=== PATIENT | female | born 2005 | race Caucasian/White ===

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

== ENCOUNTER 2024-01-25 10:32 | Outpatient (REF) | payer MEDICAID, SELFPAY ==
--- NOTE | ~2024-01-25 | US_ITS ---
EXAMINATION: US RETROPERITONEAL LIMITED (RENAL ONLY) CLINICAL INFORMATION: Unspecified hydronephrosis. COMPARISON: CT abdomen and pelvis 10/06/2023. TECHNIQUE: Real-time imaging of the kidneys. FINDINGS: RIGHT KIDNEY: 10.8 x 4.1 x 5.3 cm (SAG x AP x TRV). The kidney is normal in size, contour, and echogenicity. Renal cortical thickness is normal. No focal parenchymal lesions or hydronephrosis. At the interpolar aspect, a 4 mm nonobstructing calculus is seen. At the lower pole, 2 mm and 3 mm nonobstructing calculi are seen. LEFT KIDNEY: 10.3 x 5.7 x 4.7 cm (SAG x AP x TRV). The kidney is normal in size, contour, and echogenicity. Renal cortical thickness is normal. No calculi or focal parenchymal lesions. No hydronephrosis. US/US renal BI IMPRESSION: There are nonobstructing right renal calculi. No left renal calculus is seen. No hydronephrosis is seen bilaterally.
== END 2024-01-25 10:33 | disposition home or self-care (01) ==
LOC: HO.US 10:32
PROVIDERS: PCP Student in an Organized Health Care Education/Training Program; Visit Provider Urology
DX: N20.1 Calculus of ureter (principal); N13.30 Unspecified hydronephrosis
CPT/HCPCS: 76775

== ENCOUNTER 2024-02-01 11:34 | Outpatient (AMB) | payer MEDICAID, SELFPAY ==
--- NOTE | 2024-02-01 11:36 | A.OFFVIS_ITS ---
Intake Visit Reasons: 10w/US/[employer] Intake Note: Patient is present for 10W F/U US Urology Medication:Tamsulosin Antibiotic Allergy:none Blood Thinner:none Executive Assistant Required: No Accompanied by: Self / Same As Patient Allergies No Known Allergies Allergy (Verified 02/01/24 11:38) HPI Comments Details: 02/01/24--Here for FU, had 24 hr urine: Discussed 24 hour urine results: Total volume 890 mL, Calcium 221 mg; Oxalate 32 mg, Sodium 24, Citrate 800 mg. Alison states that that day she was outdoors a lot. Instructed on importance of increasing fluid intake especially when she is outside on a hot or stenuous exercise when she may be sweating, decrease animal protein, and continue Low oxalate diet, low sodium diet. Reviewed follow-up renal ultrasound. Hydronephrosis resolved no renal calculi noted. Plan to repeat 24 hour urine in 9 months. Review of chart: 11/27/23--Alison is here in follow-up, she was treated at [facility] for pyelonephritis and CT imaging at that time noted a 2 mm right ureteral stone with mild hydronephrosis. Patient states she has been doing well since being seen in the hospital. She denies gross hematuria. I have discussed at length diet modification to decrease risk of forming more kidney stones. I have discussed low oxalate diet and specific foods to avoid including certain green leafy vegetables, chocalate, nuts, tea, beets, rubarb; low sodium, decreased use of animal protein and the importance of hydration drinking up to 2-2.5 liters of fluids and use of adding lemon to water to increase citrate in the diet. A pamphlet is also provided today. The patient states that she knows that she does not drink enough water. She drinks a lot of tea and will have spinach smoothies. Plan discussed 24 hour urine collection. Follow-up renal ultrasound. Review of chart: 10/06/23--Consult HPI--Alison is 18-year-old female with no significant PMH who presents to the ED with?right-sided flank pain x1 day. She stated pain started this morning also had 3-4 episodes of nausea and vomiting, Denies dysuria, but noted brown - red color to urine. Denies chest pain/pressure, palpitations. Shortness of breath. The patient was examined in the emergency room, she would received some IV fluid hydration stated she felt a lot better. Abdomen soft no CVA tenderness. No right lower quadrant tenderness to palpation. 10/06/23--CTAP: Minimal right-sided hydronephrosis secondary to a 2 mm calculus within the distal right ureter. [facility] Social History Household Members: Family Housing: House Do you presently have visiting nurse or other home services: No Patient Tobacco Use Status: Never used Tobacco service: No Review of Systems Const All systems reviewed & are unremarkable except as noted in HPI and below Reports no additional complaints Eyes Reports no additional complaints ENT Reports no additional complaints Card Reports no additional complaints Resp Reports no additional complaints GI Reports no additional complaints Reports as per HPI Musc Reports no additional complaints Skin/Breast Reports system reviewed and no additional complaints, except as documented Neuro Reports no additional complaints Psych Reports no additional complaints Endo Reports no additional complaints Jan/Lymph Reports no additional complaints Aller/Immun Reports no additional complaints Results AMB Urinalysis, Automated UA Leukoctes 70 Narinder/uL Last Edit by JERSEY Posadas on 02/01/24 11:52 UA Nitrite Negative Last Edit by JERSEY Posadas on 02/01/24 11:52 UA Urobilinogen 0.2 mg/dL Last Edit by JERSEY Posadas on 02/01/24 11:5 2 UA Protein 15 mg/dL Last Edit by JERSEY Posadas on 02/01/24 11:52 UA pH 7.0 Last Edit by JERSEY Posadas on 02/01/24 11:52 UA Blood 0 Moreno/uL Last Edit by JERSEY Posadas on 02/01/24 11:52 UA Specific [place] 1.010 Last Edit by JERSEY Posadas on 02/01/24 11: 52 UA Ketone Negative Last Edit by JERSEY Posadas on 02/01/24 11:52 UA Bilirubin 0 mg/dL Last Edit by JERSEY Posadas on 02/01/24 11:52 UA Glucose 0 mg/dL Last Edit by JERSEY Posadas on 02/01/24 11:52 Results Reviewed Results Reviewed: Date of Service: 01/25/24 US RETROPERITONEAL LIMITED (RENAL ONLY) CLINICAL INFORMATION: Unspecified hydronephrosis. COMPARISON: CT abdomen and pelvis 10/06/2023. TECHNIQUE: Real-time imaging of the kidneys. FINDINGS: RIGHT KIDNEY: 10.8 x 4.1 x 5.3 cm (SAG x AP x TRV). The kidney is normal in size, contour, and echogenicity. Renal cortical thickness is normal. No focal parenchymal lesions or hydronephrosis. At the interpolar aspect, a 4 mm nonobstructing calculus is seen. At the lower pole, 2 mm and 3 mm nonobstructing calculi are seen. LEFT KIDNEY: 10.3 x 5.7 x 4.7 cm (SAG x AP x TRV). The kidney is normal in size, contour, and echogenicity. Renal cortical thickness is normal. No calculi or focal parenchymal lesions. No hydronephrosis. IMPRESSION: There are nonobstructing right renal calculi. No left renal calculus is seen. No hydronephrosis is seen bilaterally. 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 Renal ultrasound 01/25/2024 Code(s): N13.30 - Unspecified hydronephrosis Category: Medical (3) Ureterolithiasis: Code(s): N20.1 - Calculus of ureter Category: Medical (4) History of pyelonephritis: Code(s): Z87.448 - Personal history of other diseases of urinary system Category: Medical Plan 24 hour urine. Low urine volume. Elevated urine calcium. Instructed on importance of increasing fluid intake, decrease animal protein, and continue Low oxalate diet, low sodium diet. Reviewed follow-up renal ultrasound. Hydronephrosis resolved no renal calculi noted. Plan to repeat 24 hour urine in 9 months. Orders: Orders AMB Urinalysis Automated Today Z13.9 - Encounter for screening, unspecified Patient Instructions: The patient had an opportunity to ask questions regarding treatment plan. The patient expressed understanding and agreement with the above treatment plan. The patient is aware they should contact our office by phone for worsening of their current condition or the appearance of new symptoms. Compliance is encouraged with any medications and followup testing that is ordered. It is a privilege to be allowed the opportunity to participate in the urologic care of your patient. If you have any questions or concerns regarding treatment for the above conditions please do not hesitate to contact me. The office telephone contact is [phone]. This note is constructed in part using voice recognition software. While every effort has been made to ensure accuracy clinical documentation specialist errors may have been included. Yours sincerely, Angelito Fry MD Coding Level of Care Code Est Pt Level 4 (85374) Diagnoses Hypercalciuria R82.994 Hydronephrosis N13.30 Ureterolithiasis N20.1 History of pyelonephritis Z87.448
== END 2024-02-01 12:04 | disposition home or self-care (01) ==
PROVIDERS: PCP Student in an Organized Health Care Education/Training Program; Visit Provider Urology
DX: R82.994 Hypercalciuria (principal); N13.30 Unspecified hydronephrosis; N20.1 Calculus of ureter; Z87.448 Personal history of other diseases of urinary system; Z13.9 Encounter for screening, unspecified
CPT/HCPCS: 99214

== ENCOUNTER → 2024-02-01 11:34 | Outpatient (BNVA) | payer MEDICAID, SELFPAY | PROVIDERS: PCP Student in an Organized Health Care Education/Training Program; Visit Provider Urology | DX: N20.1 Calculus of ureter (principal); N13.30 Unspecified hydronephrosis; R82.994 Hypercalciuria; Z87.448 Personal history of other diseases of urinary system | CPT/HCPCS: 81003; 99212 ==

== ENCOUNTER 2024-12-19 11:30 | Outpatient (AMB) | payer OTHER, SELFPAY ==
--- NOTE | 2024-12-19 11:38 | A.OFFVIS_ITS ---
Intake Visit Reasons: 9m/24hr Urine Intake Note: Patient is present for 9 month follow up/24hr urine * 11/29 [facility] comp. Urology Medication:none Antibiotic Allergy:none Blood Thinner:none Stove Polisher Required: No Accompanied by: Self / Same As Patient Allergies No Known Allergies Allergy (Verified 12/19/24 11:39) Medication List - Last Reconciled 12/19/24 by Angelito Fry MD ibuprofen 200 mg PO Q6H PRN HPI Comments Details: 12/19/24--Cliff is here in follow-up for nephrolithiasis. Discussed 24 hour urine results collected:11/29/24-- Total volume 580mL, Calcium 125 mg; Oxalate 27 mg, Citrate 426 mg, Sodium 90. History of Present Illness The patient is a 19-year-old female presenting with a follow-up for nephrolithiasis. She was previously diagnosed with nephrolithiasis, specifically in the right kidney, with stone sizes of 4 mm, 2 mm, and 3 mm noted in a past ultrasound from January 2024. Recently submitted a 24-hour urine collection noted low urine volume (580 mL), though calcium and oxalate levels have normalized. Citrate levels, having previously been elevated, are now lower, which may necessitate dietary modifications to maintain adequate levels for stone inhibition. She mentions episodic right flank pain, possibly indicative of stone movement, with no accompanying hematuria, or may be musculuskelal. Plan renal US. Increase fluid intake. Urinary Symptoms Review - Decreased fluid intake leading to reduced urine volume (580 mL in 24 hours) - Episodic right flank pain, intermittent, resolves quickly - No visible hematuria noted Results - Past ultrasound (January): Right nephrolithiasis with stones measuring 4 mm, 2 mm, and 3 mm; left kidney clear. - 24-hour urine collection (November 29, 2024): Urine volume 580 mL, normal calcium and oxalate levels. 02/01/24--Here for FU, had 24 hr urine: Discussed 24 hour urine results: Total volume 890 mL, Calcium 221 mg; Oxalate 32 mg, Sodium 24, Citrate 800 mg. Alison states that that day she was outdoors a lot. Instructed on importance of increasing fluid intake especially when she is outside on a hot or stenuous exercise when she may be sweating, decrease animal protein, and continue Low oxalate diet, low sodium diet. Reviewed follow-up renal ultrasound. Hydronephrosis resolved no renal calculi noted. Plan to repeat 24 hour urine in 9 months. 11/27/23--Alison is here in follow-up, she was treated at [facility] for pyelonephritis and CT imaging at that time noted a 2 mm right ureteral stone with mild hydronephrosis. Patient states she has been doing well since being seen in the hospital. She denies gross hematuria. I have discussed at length diet modification to decrease risk of forming more kidney stones. I have discussed low oxalate diet and specific foods to avoid including certain green leafy vegetables, chocalate, nuts, tea, beets, rubarb; low sodium, decreased use of animal protein and the importance of hydration drinking up to 2-2.5 liters of fluids and use of adding lemon to water to increase citrate in the diet. A pamphlet is also provided today. The patient states that she knows that she does not drink enough water. She drinks a lot of tea and will have spinach smoothies. Plan discussed 24 hour urine collection. Follow-up renal ultrasound. 10/06/23--Consult HPI--Alison is 18-year-old female with no significant PMH who presents to the ED with?right-sided flank pain x1 day. She stated pain started this morning also had 3-4 episodes of nausea and vomiting, Denies dysuria, but noted brown - red color to urine. Denies chest pain/pressure, palpitations. Shortness of breath. The patient was examined in the emergency room, she would received some IV fluid hydration stated she felt a lot better. Abdomen soft no CVA tenderness. No right lower quadrant tenderness to palpation. 10/06/23--CTAP: Minimal right-sided hydronephrosis secondary to a 2 mm calculus within the distal right ureter. [facility] Social History Household Members: Family Housing: House Do you presently have visiting nurse or other home services: No Patient Tobacco Use Status: Never used Tobacco service: No Review of Systems Const All systems reviewed & are unremarkable except as noted in HPI and below Reports no additional complaints Eyes Reports no additional complaints ENT Reports no additional complaints Card Reports no additional complaints Resp Reports no additional complaints GI Reports no additional complaints Reports as per HPI Musc Reports no additional complaints Skin/Breast Reports system reviewed and no additional complaints, except as documented Neuro Reports no additional complaints Psych Reports no additional complaints Endo Reports no additional complaints Jan/Lymph Reports no additional complaints Aller/Immun Reports no additional complaints Results Reviewed Results Reviewed: Date of Service: 01/25/24 US RETROPERITONEAL LIMITED (RENAL ONLY) CLINICAL INFORMATION: Unspecified hydronephrosis. COMPARISON: CT abdomen and pelvis 10/06/2023. TECHNIQUE: Real-time imaging of the kidneys. FINDINGS: RIGHT KIDNEY: 10.8 x 4.1 x 5.3 cm (SAG x AP x TRV). The kidney is normal in size, contour, and echogenicity. Renal cortical thickness is normal. No focal parenchymal lesions or hydronephrosis. At the interpolar aspect, a 4 mm nonobstructing calculus is seen. At the lower pole, 2 mm and 3 mm nonobstructing calculi are seen. LEFT KIDNEY: 10.3 x 5.7 x 4.7 cm (SAG x AP x TRV). The kidney is normal in size, contour, and echogenicity. Renal cortical thickness is normal. No calculi or focal parenchymal lesions. No hydronephrosis. IMPRESSION: There are nonobstructing right renal calculi. No left renal calculus is seen. No hydronephrosis is seen bilaterally. 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 - Add lemon or lemon concentrate to your diet to increase citrate levels. - renal US Orders: Orders US renal BI Today M54.9 - Dorsalgia, unspecified, N20.0 - Calculus of kidney Medications: Discontinued oxycodone Partial Fill upon patient request. Discontinued Reason: Patient Completed Course 5 mg PO Q6H PRN 7 caps 0RF moderate pain (scale score 5-6) Patient Instructions: The patient had an opportunity to ask questions regarding treatment plan. The patient expressed understanding and agreement with the above treatment plan. The patient is aware they should contact our office by phone for worsening of their current condition or the appearance of new symptoms. Compliance is encouraged with any medications and followup testing that is ordered. It is a privilege to be allowed the opportunity to participate in the urologic care of your patient. If you have any questions or concerns regarding treatment for the above conditions please do not hesitate to contact me. The office telephone contact is [phone]. This note is constructed in part using voice recognition software. While every effort has been made to ensure accuracy instructional technology coordinator errors may have been included. Yours sincerely, Angelito Fry MD Scribe Plan - Not visible on output: Patient was informed and verbally consented to the use of an ambient scribe for clinic note documentation during this visit. Coding Level of Care Code Est Pt Level 4 (96729) Diagnoses Hypercalciuria R82.994 History of pyelonephritis Z87.448 Right renal stone N20.0 Back pain M54.9
--- OUTSIDE RECORDS SUMMARY | 2024-12-19 12:48 | XMS_ITS | Clinical Summary ---
Author Organization [facility] Address [address] [place] [address] Care Team Providers Care Retail Visual Merchandiser Name Role Phone Laurent Correa MD Primary Care Provider [phone] Source Comments PLEASE NOTE, if this patient is a minor, it may be UNLAWFUL to discuss sensitive information that is contained in these records (such as FAMILY PLANNING, MENTAL HEALTH or SUBSTANCE ABUSE) with the minor patient's parent or other person without the patient's specific authorization.[facility] Allergies No known active allergies Medications tretinoin (RETIN-A) 0.01 % gelIndications:A cne comedone Apply topically nightly at bedtime 15 g 3 0 Active clindamycin phosphate (CLINDAGEL) 1 % gelIndications:A cne, unspecified acne type Apply topically 2 (two) times daily 60 g 3 4 Active ibuprofen 400 mg tabletIndication s:Routine general medical examination at a health care facility Take 1 Tablet by mouth 4 (four) times daily as needed for fever, moderate pain or mild pain 90 Tablet 1 4 Active Active Problems Problem Noted Date Diagnosed Date Hydronephrosis with urinary obstruction due to ureteral calculus 12/21/2023 Overview (02/15/2024): 01/2024: Urology low urine volume and elevated urine calcium in 24h urine. Advised increased fluids, decrease animal protein and low oxalate diet, low sodium diet Repeat in 9 months. Hydronephrosis resolved. 11/27/23: Urology - repeat renal US, F/u in [address] A/P: minimal RS hydronephrosis 2/2 2mm calculus within distal R ureter History of cold sores 02/20/2020 Immunity to varicella determined by serologic te st 09/12/2019 Acne vulgaris 09/12/2019 Lack of immunity to hepatiti s B virus demonstrated by serologic test 09/09/2019 Immunizations Immunization Administration Dates Next Due DTAP (DAPTACEL),5 PERTUSSIS ANTIGENS ,03/20/2005,02/12/2005,2004 HEP B, PED/ADOL 03/19/2021, 0,11/01/2019,2004,2004,2004 MENINGOCOCCAL MCV4P (MENACTRA) 03/19/2021,2019 MMR (MMR II/Priorix) 10/01/2010,10/14/2005 OPV, Trivalent 08/28/2011, 6,03/31/2005,2004,02/12/2005 TDAP 09/09/2019 Td (adult) unspecified 08/28/2011 Family History Medical History Relation Name Comments No Known Problems Brother No Known Problems Father Other (See Comments) Mother Polyoar thritis. No Known Problems Sister Relation Name Status Comments Brother Alive Father Alive Mother Alive Sister Alive Social History Tobacco Use Types Packs/Day Years Used Date Smoking Tobacco: Never Smokeless Tobacco: Never Tobacco Cessation:Counseling Given: Not Answered Alcohol Use Standard Drinks/Week Comments Never 0 (1 standard drink = 0.6 oz pur e alcohol) Social Connections Answer Date Recorded Connectedness 0 03/24/2024 Financial Resource Strain Answer Date R ecorded Financial Resource Strain 0 2019 Stress Answer Date Recorded Stress 0 09/09/2019 Physical Activity Answer Date Recorded Physical Activity 0 09/09/2019 Food Insecurity Answer Date Recorded Food 0 04/14/2024 Transportation Needs Answer Date Record ed Transportation 0 09/09/2019 Housing Stability Answer Date Recorded Housing 0 09/09/2019 Safety and Environment Answer Date Tobin rded Safety 1 12/28/2023 Utilities Answer Date Recorded Utilities 0 09/09/2019 Employment Answer Date Recorded Employment 0 09/09/2019 Comments No Sex and Gender Information Value Date Recorded Sex Assigned at Female 12/28/2023 6:30 AM PDT Legal Sex Female 1:13 PM PST Gender Identity Female 12/28/2023 6:30 AM PDT Sexual Orientation Straight 12/28/2023 6: 30 AM PDT Last Filed Vital Signs Vital Sign Reading Time Taken Comments Blood Pressure 110/82 12/28/2023 8:58 AM EDT Pulse 86 12/28/2023 8:58 AM EDT Temperature 36.7 ??C (98 ??F) 12/28/2023 8:58 AM EDT Respiratory Rate 16 12/28/2023 8:58 AM EDT Oxygen Saturation 98% 12/28/2023 8:58 AM EDT Inhaled Oxygen Concentration - - Weight 59.9 kg (132 lb) 12/28/2023 8:58 AM EDT Height 162.7 cm (5' 4.06 ) 12/28/2023 8:58 AM ED T Body Mass Index 22.62 12/28/2023 8:58 AM EDT Plan of Treatment Health Maintenance Due Date Last Done Comments Anxiety Screening 2004 Imm-HPV (1 - 3-dose series) 09/28/2019 Imm-Meningococcal B (1 of 2 - Standard) 2020 [id number] () 03/20/2024 Alcohol and Drug Screen 07/20/2024 12/28/19 24, 03/19/2021, 02/17/2020 Depression Annual Screen 07/20/2024 12/28/2023 Annual Wellness (Adult): Indicated (All Coverage) 12/27/2024 12/28/2023 Relationship Safety Screening/Counseling 12/27/2024 12/28/2023 Tobacco Screening 12/27/2024 12/28/2023 Chlamydia Screening 01/03/2025 01/04/2024, 05/22/2022, 03/19/2021, Additional history exists Gonorrhea Screening 01/03/2025 01/04/2024, 05/22/2022, 03/19/2021, Additional history exists Imm-Influenza (Season Ended) 2025 Hypertension Screening (#1) 12/27/2026 Imm-DTaP/Tdap/Td (6 - Td or Tdap) 09/09/2029 09/09/2019, 08/28/2011, 05/06/2006, Additional history exists Imm-MMR Completed 10/01/2010, 10/14/2005 Imm-Hepatitis B Completed 03/19/2021, 01/19, 11/01/2019, Additional history exists HIV Screening Completed 12/28/2023, 09/09/2019 Hepatitis C Screening Completed 12/28/2023 Imm-Hepatitis A Aged Out No longer el igible based on patient's age to complete this topic Procedures Procedure Name Priority Date/Time Associated Diagnosis Comments REFERRAL TO DERMATOLOGY Routine 11/21/2024 3:00 AM EDT Closed comedone C TRACHOMATIS/N GONORRHOEAE RNA,TMA Routine 01/04/2024 11:19 AM EDT Routine general medical examination at a health care facility HIV 1/2 AG & AB W/RFLX (4TH GEN) Routine 12/28/2023 9:44 AM EDT Routine general medical examination at a health care facility HEPATITIS C AB W/RFLX HCV RNA, QT, RT PCR Routine 12/28/2023 9:42 AM EDT Routine general medical examination at a health care facility from Last 3 Months or Most Recently Relevant to Health Maintenance Results * REFERRAL TO DERMATOLOGY (11/21/2024 3:00 AM EDT) 11/21/2024 3:00 AM EDT Laurent Correa MD REFERRAL Edited Result - Final * C TRACHOMATIS/N GONORRHOEAE RNA,TMA (01/04/2024 11:19 AM EDT) CHLAMYDIA TRACHOMATIS RNA, TMA NOT DETECTED NOT DETECTED [employer] [facility] NEISSERIA GONORRHOEAE RNA, TMA NOT DETECTED NOT DETECTED [employer] [facility] COMMENT [employer] [facility] Urine Urine specimen / Unknown 01/04/2024 11:19 AM EDT 01/04/2024 11:19 AM EDT Narrative [employer] [facility] - 01/05/2024 11:29 PM EDT The analytical performance characteristics of this assay, when used to test SurePath(TM) specimens have been determined by [employer]. The modifications have not been cleared or approved by the FDA. This assay has been validated pursuant to the CLIA regulations and is used for clinical purposes. For additional information, please refer to https://[employer].OrderAhead/faq/VWQ616 (This link is being provided for information/ educational purposes only.) us Laurent Correa MD LAB BODY FLUIDS AND STOOLS AMBUL ATORY Final Result Performing Organization Address [facility] Co de Phone Number [employer] [address] [address], [employer] [address] [address] * HIV 1/2 AG & AB W/RFLX (4TH GEN) (12/28/2023 9:44 AM EDT) [facility] HIV AG/AB, 4TH GEN NON-REAC TIVE NON-REAC TIVE [employer] [facility] Comment: HIV-1 antigen and HIV-1/HIV-2 antibodies were not detected. There is no laboratory evidence of HIV infection. PLEASE NOTE: This information has been disclosed to you from records whose confidentiality may be protected by state law. ??If your state requires such protection, then the state law prohibits you from making any further disclosure of the information without the specific written consent of the person to whom it pertains, or as otherwise permitted by law. A general authorization for the release of medical or other information is NOT sufficient for this purpose. ?? For additional information please refer to http://[employer].OrderAhead/faq/RAN414 (This link is being provided for informational/ educational purposes only.) The performance of this assay has not been clinically validated in patients less than 2 years old. Blood Blood / Unknown 12/28/2023 9 :44 AM EDT 12/28/2023 9:44 AM EDT us Laurent Correa MD LAB - BLOOD DRAW Final Result Performing Organization Address [facility]/ZIP Co de Phone Number [employer] [address] [address], [employer] [address] [address] * HEPATITIS C AB W/RFLX HCV RNA, QT, RT PCR (12/28/2023 9:42 AM EDT) HEPATITIS C ANTIBODY NON-REACT ARPAN NON-REACT ARPAN [employer] Comment: HCV antibody was non-reactive. There is no laboratory evidence of HCV infection. In most cases, no further action is required. However, if recent HCV exposure is suspected, a test for HCV RNA (test code 71306) is suggested. For additional information please refer to http://education.OrderAhead/faq/PGT88l3 (This link is being provided for informational/ educational purposes only.) Blood Blood / Unknown 12/28/2023 9 :42 AM EDT 12/28/2023 9:43 AM EDT us Laurent Correa MD LAB - BLOOD DRAW Final Result [employer] [address] [address], [employer] [address] [place] [address] from Last 3 Months or Most Recently Relevant to Health Maintenance Insurance [employer] Care Teams Retail Visual Merchandiser Relationship Specialty Start Date End Date Laurent Correa MD [address] [place] [address] PCP - General Family Medicine, Physician 12/09/23
== END 2024-12-19 12:04 | disposition home or self-care (01) ==
LOC: HO.HUSH 11:30
PROVIDERS: PCP Student in an Organized Health Care Education/Training Program; Visit Provider Urology
DX: R82.994 Hypercalciuria (principal); Z87.448 Personal history of other diseases of urinary system; N20.0 Calculus of kidney; M54.9 Dorsalgia, unspecified
CPT/HCPCS: 99214

== ENCOUNTER → 2024-12-19 11:30 | Outpatient (BNVA) | payer OTHER, SELFPAY | PROVIDERS: PCP Student in an Organized Health Care Education/Training Program; Visit Provider Urology | DX: R82.994 Hypercalciuria (principal); N20.0 Calculus of kidney; M54.9 Dorsalgia, unspecified; Z87.448 Personal history of other diseases of urinary system | CPT/HCPCS: 99212 ==

== ENCOUNTER 2025-03-08 07:51 | Outpatient (REF) | payer OTHER, SELFPAY ==
--- NOTE | ~2025-03-08 | US_ITS ---
CLINICAL HISTORY: M54.9 - Dorsalgia, unspecified, Back pain, calculus of kidney, rt US Renal Comparison: 01/25/2024 Findings: Right kidney normal size and echotexture, 10.2 cm length. Left kidney normal size and echotexture, 10.2 cm length. No collecting system dilatation of either kidney. Normal color Doppler. One to a few nonobstructive right renal stones measuring up to 4 mm, also seen on prior exam. IMPRESSION: Small nonobstructive right renal stone/s. This document has been electronically signed by: Jannie Correa MD on 03/09/2025 11:52:55
--- OUTSIDE RECORDS SUMMARY | 2025-03-08 07:53 | XMS_ITS | Clinical Summary ---
Author Organization [facility] Address [address] [place] [address] Care Team Providers Care Field Case Manager Name Role Phone Laurent Correa MD Primary Care Provider [phone] Source Comments PLEASE NOTE, if this patient [...] obstruction due to ureteral calculus 12/21/2023 Overview (12/20/2024): Following Urology, last seen 12/2024, adequate hydration, repeat renal US 01/2024: Urology low urine volume and elevated [...] Dates Next Due DTAP (DAPTACEL),5 PERTUSSIS ANTIGENS ,03/20/2005,02/12/2005,12/31 HEP B, PED/ADOL ([id number]/RECOMBIVAX-PEDS) 03/19/2021,02/17/2020,11/01/2019,04/22,2004,2004 MENINGOCOCCAL MCV4P (MENACTRA) 03/19/2021,2019 MMR (MMR II/Priorix) 10/01/2010,10/14/2005 OPV, Trivalent 08/28/2011, 6,03/31/2005,03/20,02/12/2005 TDAP 09/09/2019 Td (adult) unspecified 08/28/2011 Family [...] 86 12/28/2023 8:58 AM EDT Temperature 36.7 C (98 F) 12/28/2023 8:58 AM EDT Respiratory Rate 16 [...] Date Last Done Comments Anxiety Screening 2004 Tobacco Screening 2004 Imm-HPV (1 - 3-dose series) 09/28/2019 Imm-Meningococcal B (1 of 2 - Standard) 2020 [id number] ( season) 2024 Alcohol and Drug Screen 07/20/2024 12/28/19 24, 03/19/2021, 02/17/2020 Depression Annual Screen 07/20/2024 12/28/2023 Annual Wellness (Adult): Indicated (All Coverage) 12/27/2024 12/28/2023 Relationship Safety Screening/Counseling 12/27/2024 12/28/2023 Chlamydia Screening 01/03/2025 01/04/2024, 05/22/2022, 03/19/2021, Additional history exists Gonorrhea Screening 01/03/2025 01/04/2024, 05/22/2022, 03/19/2021, Additional history exists Imm-Influenza (#1) 2025 Hypertension Screening (#1) 12/27/2026 Imm-DTaP/Tdap/Td (6 - Td or Tdap) 09/09/2029 09/09/2019, 08/28/2011, 05/06/2006, Additional history exists Imm-MMR Completed 10/01/2010, 10/14/2005 Imm-Hepatitis B Completed 03/19/2021, 07/07/2019, 11/01/2019, Additional history exists HIV Screening Completed 12/28/2023, 09/09/2019 Hepatitis C Screening Completed 12/28/2023 Imm-Hepatitis A Aged Out No longer el igible based on patient's age to complete this topic Procedures Procedure Name Priority Date/Time Associated Diagnosis Comments REFERRAL SCANNED DOCUMENT 12/19/2024 3:00 AM EDT C TRACHOMATIS/N GONORRHOEAE RNA,TMA Routine 01/04/2024 11:19 [...] Relevant to Health Maintenance Results * REFERRAL SCANNED DOCUMENT (12/19/2024 3:00 AM EDT) 12/19/2024 3:00 AM EDT Laurent Correa MD SCAN REFERRAL Final Result * C TRACHOMATIS/N GONORRHOEAE RNA,TMA (01/04/2024 11:19 AM EDT) CHLAMYDIA TRACHOMATIS RNA, TMA NOT DETECTED NOT DETECTED [facility] NEISSERIA GONORRHOEAE RNA, TMA NOT DETECTED NOT DETECTED [facility] COMMENT [facility] Urine Urine specimen / Unknown 01/04/2024 11:19 AM EDT 01/04/2024 11:19 AM EDT Narrative [facility] - 01/05/2024 11:29 PM EDT The analytical performance characteristics of this assay, when used to test SurePath(TM) specimens have been determined by [employer]. The modifications have not been cleared or approved by the FDA. This assay has been validated pursuant to the CLIA regulations and is used for clinical purposes. For additional information, please refer to https://[employer]'s.Flit/faq/YZE850 (This link is being provided for information/ educational purposes only.) us Laurent Correa MD LAB BODY FLUIDS AND STOOLS AMBUL ATORY Final Result Performing Organization Address [facility]/ZIP Co de Phone Number [facility] [employer] [facility] [address] [address], [facility] [address] [address] * HIV 1/2 AG & AB W/RFLX (4TH GEN) (12/28/2023 9:44 AM EDT) [facility] HIV AG/AB, 4TH GEN NON-REAC TIVE NON-REAC TIVE [facility] Comment: HIV-1 antigen and HIV-1/HIV-2 antibodies were not detected. There is no laboratory evidence of HIV infection. PLEASE NOTE: This information has been disclosed to you from records whose confidentiality may be protected by state law. If your state requires such protection, then the state law prohibits you from making any further disclosure of the information without the specific written consent of the person to whom it pertains, or as otherwise permitted by law. A general authorization for the release of medical or other information is NOT sufficient for this purpose. For additional information please refer to http://[employer]with.[employer]/faq/ZQE172 (This link is being provided for informational/ educational purposes only.) The performance of this assay has not been clinically validated in patients less than 2 years old. Blood Blood / Unknown 12/28/2023 9 :44 AM EDT 12/28/2023 9:44 AM EDT us Laurent Correa MD LAB - BLOOD DRAW Final Result Performing Organization Address [facility]/ZIP Co de Phone Number [facility] [address] [address], [facility] [address] [address] * HEPATITIS C AB W/RFLX HCV RNA, QT, RT PCR (12/28/2023 9:42 AM EDT) HEPATITIS C ANTIBODY NON-REACT ARPAN NON-REACT ARPAN [employer] Comment: HCV antibody was non-reactive. There is no laboratory evidence of HCV infection. In most cases, no further action is required. However, if recent HCV exposure is suspected, a test for HCV RNA (test code 37571) is suggested. For additional information please refer to http://education.Flit/faq/TZV29z7 (This link is being provided for informational/ educational purposes only.) Blood Blood / Unknown 12/28/2023 9 :42 AM EDT 12/28/2023 9:43 AM EDT us Laurent Correa MD LAB - BLOOD DRAW Final Result [employer] [address] [address], [employer] [address] [address] from Last 3 Months or Most Recently Relevant to Health Maintenance Insurance [employer] Care Teams Field Case Manager Relationship Specialty Start Date End Date Laurent Correa MD [address] [place] [address] PCP - General Family Medicine, Physician 12/09/23
== END 2025-03-08 07:52 | disposition home or self-care (01) ==
LOC: HO.US 07:51
PROVIDERS: PCP Student in an Organized Health Care Education/Training Program; Visit Provider Urology
DX: M54.9 Dorsalgia, unspecified (principal); N20.0 Calculus of kidney
CPT/HCPCS: 76775

== ENCOUNTER → 2025-03-08 07:52 | Outpatient (BNV) | payer OTHER, SELFPAY | PROVIDERS: PCP Student in an Organized Health Care Education/Training Program; Visit Provider Radiology Diagnostic Radiology | DX: N20.0 Calculus of kidney (principal) | CPT/HCPCS: 76775 ==

== ENCOUNTER 2025-03-23 08:24 | Outpatient (AMB) | payer OTHER, SELFPAY ==
--- NOTE | 2025-03-23 08:24 | MHC.OFFVIS ---
Intake Visit Reasons: 3m/US Intake Note: Patient is present via telehealth for 3m/US follow up 03/09 Renal US Urology Medication:none Antibiotic Allergy:none Blood Thinner:none Photovoltaic Fabrication Technician Required: No Accompanied by: Self / Same As Patient Allergies No Known Allergies Allergy (Verified 03/23/25 08:27) Medication List - Last Reconciled 03/23/25 by Angelito Fry MD ibuprofen 200 mg PO Q6H PRN HPI Comments Details: 03/23/25--Alison is followed due to history of kidney stones. Telehealth today she states she has occasional discomfort in the kidney area. I reviewed renal ultrasound 03/08/25--which notes small stones in the right kidney. In discussion with the patient she recalls that on her CAT scan there was only 1 stone. In review of the initial CAT scan 10/06/2023 a 2 mm right ureteral stone was reported; that the patient has since passed. Due to the discrepancy between the ultrasound and prior CAT scan in a year we will re-evaluate kidneys with a CT stone protocol. The patient was encouraged to continue to increase her fluid intake. She states she has adding lemon to her fluids. 12/19/24--Cliff is here in follow-up for nephrolithiasis. Discussed 24 hour urine results collected:11/29/24-- Total volume 580mL, Calcium 125 mg; Oxalate 27 mg, Citrate 426 mg, Sodium 90. History of Present Illness The patient is a 19-year-old female presenting with a follow-up for nephrolithiasis. She was previously diagnosed with nephrolithiasis, specifically in the right kidney, with stone sizes of 4 mm, 2 mm, and 3 mm noted in a past ultrasound from January 2024. Recently submitted a 24-hour urine collection noted low urine volume (580 mL), though calcium and oxalate levels have normalized. Citrate levels, having previously been elevated, are now lower, which may necessitate dietary modifications to maintain adequate levels for stone inhibition. She mentions episodic right flank pain, possibly indicative of stone movement, with no accompanying hematuria, or may be musculuskelal. Plan renal US. Increase fluid intake. Urinary Symptoms Review - Decreased fluid intake leading to reduced urine volume (580 mL in 24 hours) - Episodic right flank pain, intermittent, resolves quickly - No visible hematuria noted Results - Past ultrasound (January): Right nephrolithiasis with stones measuring 4 mm, 2 mm, and 3 mm; left kidney clear. - 24-hour urine collection (November 29, 2024): Urine volume 580 mL, normal calcium and oxalate levels. 02/01/24--Here for FU, had 24 hr urine: Discussed 24 hour urine results: Total volume 890 mL, Calcium 221 mg; Oxalate 32 mg, Sodium 24, Citrate 800 mg. Alison states that that day she was outdoors a lot. Instructed on importance of increasing fluid intake especially when she is outside on a hot or stenuous exercise when she may be sweating, decrease animal protein, and continue Low oxalate diet, low sodium diet. Reviewed follow-up renal ultrasound. Hydronephrosis resolved no renal calculi noted. Plan to repeat 24 hour urine in 9 months. 11/27/23--Alison is here in follow-up, she was [place] [facility] [place] and CT imaging at that time noted a 2 mm right ureteral stone with mild hydronephrosis. Patient states she has been doing well since being seen in the hospital. She denies gross hematuria. I have discussed at length diet modification to decrease risk of forming more kidney stones. I have discussed low oxalate diet and specific foods to avoid including certain green leafy vegetables, chocalate, nuts, tea, beets, rubarb; low sodium, decreased use of animal protein and the importance of hydration drinking up to 2-2.5 liters of fluids and use of adding lemon to water to increase citrate in the diet. A pamphlet is also provided today. The patient states that she knows that she does not drink enough water. She drinks a lot of tea and will have spinach smoothies. Plan discussed 24 hour urine collection. Follow-up renal ultrasound. 10/06/23--Consult HPI--Alison is 18-year-old female with no significant PMH who presents to the ED with?right-sided flank pain x1 day. She stated pain started this morning also had 3-4 episodes of nausea and vomiting, Denies dysuria, but noted brown - red color to urine. Denies chest pain/pressure, palpitations. Shortness of breath. The patient was examined in the emergency room, she would received some IV fluid hydration stated she felt a lot better. Abdomen soft no CVA tenderness. No right lower quadrant tenderness to palpation. 3/19/24--CTAP: Minimal right-sided hydronephrosis secondary to a 2 mm calculus within the distal right ureter. [facility] Social History Household Members: Family Housing: House Do you presently have visiting nurse or other home services: No Patient Tobacco Use Status: Never used Tobacco service: No Review of Systems Const All systems reviewed & are unremarkable except as noted in HPI and below Reports no additional complaints Eyes Reports no additional complaints ENT Reports no additional complaints Card Reports no additional complaints Resp Reports no additional complaints GI Reports no additional complaints Reports as per HPI Musc Reports no additional complaints Skin/Breast Reports system reviewed and no additional complaints, except as documented Neuro Reports no additional complaints Psych Reports no additional complaints Endo Reports no additional complaints Jan/Lymph Reports no additional complaints Aller/Immun Reports no additional complaints Telehealth Telehealth Telehealth Platform: Telephone Location of provider rendering services: practice address Location of patient: address on file Patient Identification confirmed using: Name, : Yes Telehealth method: voice only Patient verbally consented to treatment: Yes Patient verbally consented to billing insurance company: Yes Patient informed of any privacy concerns related to visit: Yes Minutes spent on Phone/Video with Pt.: 14 Results Reviewed Results Reviewed: Date of Service: 03/08/25 US Renal Comparison: 01/25/2024 Findings: Right kidney normal size and echotexture, 10.2 cm length. Left kidney normal size and echotexture, 10.2 cm length. No collecting system dilatation of either kidney. Normal color Doppler. One to a few nonobstructive right renal stones measuring up to 4 mm, also seen on prior exam. IMPRESSION: Small nonobstructive right renal stone/s. Date of Service: 01/25/24 US RETROPERITONEAL LIMITED (RENAL ONLY) CLINICAL INFORMATION: Unspecified hydronephrosis. COMPARISON: CT abdomen and pelvis 10/06/2023. TECHNIQUE: Real-time imaging of the kidneys. FINDINGS: RIGHT KIDNEY: 10.8 x 4.1 x 5.3 cm (SAG x AP x TRV). The kidney is normal in size, contour, and echogenicity. Renal cortical thickness is normal. No focal parenchymal lesions or hydronephrosis. At the interpolar aspect, a 4 mm nonobstructing calculus is seen. At the lower pole, 2 mm and 3 mm nonobstructing calculi are seen. LEFT KIDNEY: 10.3 x 5.7 x 4.7 cm (SAG x AP x TRV). The kidney is normal in size, contour, and echogenicity. Renal cortical thickness is normal. No calculi or focal parenchymal lesions. No hydronephrosis. IMPRESSION: There are nonobstructing right renal calculi. No left renal calculus is seen. No hydronephrosis is seen bilaterally. Date of Service: 10/06/23 EXAMINATION: CT ABDOMEN AND PELVIS WITHOUT CONTRAST CLINICAL INFORMATION: Right-sided flank pain. Rule out stone. COMPARISON: None available. TECHNIQUE: Multidetector volumetric imaging was performed from the superior aspect of the liver through the pubic symphysis. Sagittal and coronal reformatted images were obtained on the technologist's workstation. This CT examination was performed using dose optimization techniques as appropriate, variously including the following: *Automated exposure control *Adjustment of mA and/or kV according to patient size (this includes techniques or standardized protocols for targeted exams where dose is matched to indication/reason for exam; i.e. extremities or head) *Use of iterative reconstruction technique DLP: 385 mGy-cm FINDINGS: Visualized lung bases are well aerated. The liver is normal in size. The gallbladder is normal in appearance. The pancreas, spleen and adrenal glands are unremarkable. Symmetrically sized kidneys. There is minimal right-sided hydronephrosis secondary to a 2 mm calculus within the distal right ureter. No left-sided renal calculi or left-sided hydronephrosis. Normal caliber loops of small and large bowel. Mild colonic stool burden. Normal appendix. Normal caliber abdominal aorta. No gross retroperitoneal lymphadenopathy. The bladder is normal in appearance. Unremarkable CT appearance of the uterus. 3 cm right adnexal cyst. Small amount of free pelvic fluid. No inguinal lymphadenopathy. No acute osseous abnormality. IMPRESSION: Minimal right-sided hydronephrosis secondary to a 2 mm calculus within the distal right ureter. Assessment & Plan Assessment & Plan (1) Calculus of kidney: Code(s): N20.0 - Calculus of kidney Category: Medical Plan One year follow-up. CT prior Orders: Orders CT kidney stone 11 Months N20.0 - Calculus of kidney Patient Instructions: The patient had an opportunity to ask questions regarding treatment plan. The patient expressed understanding and agreement with the above treatment plan. The patient is aware they should contact our office by phone for worsening of their current condition or the appearance of new symptoms. Compliance is encouraged with any medications and followup testing that is ordered. It is a privilege to be allowed the opportunity to participate in the urologic care of your patient. If you have any questions or concerns regarding treatment for the above conditions please do not hesitate to contact me. The office telephone contact is [phone]. This note is constructed in part using voice recognition software. 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 Yours sincerely, Angelito Fry MD Coding Level of Care Code Tele Est Pt Level 3 (22826) Diagnoses Calculus of kidney N20.0
--- OUTSIDE RECORDS SUMMARY | 2025-03-23 08:48 | XMS_ITS | Clinical Summary ---
Author Organization [facility] Address [address] [place] [address] Care Team Providers Care Senior Qa Analyst Name Role Phone Laurent Correa MD Primary Care Provider [phone] Source Comments PLEASE NOTE, if this patient [...] (DAPTACEL),5 PERTUSSIS ANTIGENS ,03/20/2005,02/12/2005,12/31 HEP B, PED/ADOL ([id number]-PEDS) 03/19/2021,02/17/2020,11/01/2019,04/22,2004,2004 MENINGOCOCCAL MCV4P (MENACTRA) 03/19/2021,2019 MMR (MMR [...] B (1 of 2 - Standard) 2020 Alcohol and Drug Screen 07/20/2024 12/28/19 24, 03/19/2021, 02/17/2020 Depression Annual Screen 07/20/2024 12/28/2023 Annual Wellness (Adult): Indicated (All Coverage) 12/27/2024 12/28/2023 Relationship Safety Screening/Counseling 12/27/2024 12/28/2023 Chlamydia Screening 01/03/2025 01/04/2024, 05/22/2022, 03/19/2021, Additional history exists Gonorrhea Screening 01/03/2025 01/04/2024, 05/22/2022, 03/19/2021, Additional history exists [id number] ( season) 2025 Imm-Influenza (#1) 2025 Hypertension Screening (#1) 12/27/2026 [...] Procedure Name Priority Date/Time Associated Diagnosis Comments IMAGING SCANNED DOCUMENT 03/08/2025 3:00 AM EDT C TRACHOMATIS/N GONORRHOEAE RNA,TMA [...] Recently Relevant to Health Maintenance Results * IMAGING SCANNED DOCUMENT (03/08/2025 3:00 AM EDT) 03/08/2025 3:00 AM EDT Laurent Correa MD SCAN IMAGING Final Result * C TRACHOMATIS/N GONORRHOEAE RNA,TMA (01/04/2024 11:19 AM EDT) CHLAMYDIA TRACHOMATIS RNA, TMA NOT DETECTED NOT DETECTED [employer] [employer] [facility] NEISSERIA GONORRHOEAE RNA, TMA NOT DETECTED NOT DETECTED [employer] [facility] COMMENT [employer] [facility] Urine Urine specimen / Unknown 01/04/2024 11:19 AM EDT 01/04/2024 11:19 AM EDT Narrative [facility] - 01/05/2024 11:29 PM EDT The analytical performance characteristics of this assay, when used to test SurePath(TM) specimens have been determined by [employer]. The modifications have not been cleared or approved by the FDA. This assay has been validated pursuant to the CLIA regulations and is used for clinical purposes. For additional information, please refer to https://[employer]ul[employer]/faq/WDF893 (This link is being provided for information/ educational purposes only.) us Laurent Correa MD LAB BODY FLUIDS AND STOOLS AMBUL ATORY Final Result Performing Organization Address [facility]/ZIP Co de Phone Number [employer] [facility] [address] [address], [employer] [address] [phone] * HIV 1/2 AG & AB W/RFLX (4TH GEN) (12/28/2023 9:44 AM EDT) [facility] HIV AG/AB, 4TH GEN NON-REAC TIVE NON-REAC TIVE [employer] [facility] Comment: HIV-1 antigen and HIV-1/HIV-2 antibodies were [...] purpose. For additional information please refer to http://[employer]/faq/KRY500 (This link is being provided for informational/ educational purposes only.) The performance of this assay has not been clinically validated in patients less than 2 years old. Blood Blood / Unknown 12/28/2023 9 :44 AM EDT 12/28/2023 9:44 AM EDT us Laurent Correa MD LAB - BLOOD DRAW Final Result Performing Organization Address [facility]/ZIP Co de Phone Number [facility] [employer] [facility] [address] [address], [employer] [address] [phone] * HEPATITIS C AB W/RFLX HCV RNA, QT, RT PCR (12/28/2023 9:42 AM EDT) HEPATITIS C ANTIBODY NON-REACT ARPAN NON-REACT ARPAN [employer] Comment: HCV antibody was non-reactive. There is no laboratory evidence of HCV infection. In most cases, no further action is required. However, if recent HCV exposure is suspected, a test for HCV RNA (test code 81424) is suggested. For additional information please refer to http://education.[employer]/faq/PYB48n3 (This link is being provided for informational/ educational purposes only.) Blood Blood / Unknown 12/28/2023 9 :42 AM EDT 12/28/2023 9:43 AM EDT us Laurent Correa MD LAB - BLOOD DRAW Final Result [employer] [address] [address], [employer] [address] [phone] from Last 3 Months or Most Recently Relevant to Health Maintenance Insurance [id number] Care Teams Senior Qa Analyst Relationship Specialty Start Date End Date Laurent Correa MD [address] [place] [address] PCP - General Family Medicine, Physician 12/09/23
== END 2025-03-23 09:48 | disposition home or self-care (01) ==
LOC: HO.HUSH 08:24
PROVIDERS: PCP Student in an Organized Health Care Education/Training Program; Visit Provider Urology
DX: N20.0 Calculus of kidney (principal)
CPT/HCPCS: 98013